=== PATIENT | female | born 1965 | race Caucasian/White ===

== ENCOUNTER → 2017-07-06 | Day surgery (SDC) | payer OTHER ==
[~2017-07-06] VITALS: Ht 167.6 cm; Wt 81.7 kg
[~2017-07-06] MED LIST: 0.9% Sodium Chloride 1,000 ML IV ONE; AMLO5TAB2 PO; FLUO20TA28 PO; FLUO40CA PO; IMI100 PO; LISI-567 PO; Sodium Chloride LOK Flush 10 mL Syringe IV PRN; ZONI100C6 PO; fentaNYL-PF 50 mCg/mL 2 mL Inj IVPUSH PRN
[2017-07-06 08:09] VITALS: BP 145/99; PULSE 66; O2SAT 97
[2017-07-06 09:09] VITALS: BP 137/87; PULSE 67; RESP 12; O2SAT 94
[2017-07-06 09:21] VITALS: BP 121/80; PULSE 69; RESP 12; O2SAT 98
[2017-07-06 09:29] VITALS: BP 123/83; PULSE 67; RESP 12; O2SAT 97
--- NOTE | 2017-07-06 18:33 | ENDO ---
[address] [address] ENDOSCOPY PROCEDURE PATIENT: JING QUINTERO : 1965 MR#: [id number] ADMIT: 07/06/2017 JOB ID: [id number] CORRECTED REPORT: DATE: 07/06/2017 PROCEDURE: Colonoscopy. INDICATIONS: Screening as patient has a history of colon polyps. Patient's ASA classification is II. Mallampati score is II. MEDICATIONS: Versed 6 mg, fentanyl 125 mcg. INSTRUMENT USED: [id number]. Prep quality was good. PROCEDURE DETAILS: After informed consent was obtained, the patient was brought into the GI suite, where she was placed on oxygen via nasal cannula and monitored with continuous pulse oximeter, telemetry, and blood pressure monitoring. A time-out was performed. Then, she was placed in a left lateral decubitus position and medications were administered for sedation. Digital rectal exam was performed and was unremarkable. The colonoscope was then inserted into the rectum and advanced under direct visualization to the cecum, which was identified by the presence of the ileocecal valve and appendiceal orifice. Once the cecum was reached, the colonoscope was withdrawn back into the rectum as the mucosa and lumen were examined. In the rectum, retroflexion was performed. Following retroflexion, remaining air in the rectum was suctioned, and procedure was completed. FINDINGS: In the descending colon, there was a flat, 7 mm polyp. Polyp appearance was consistent with a serrated polyp. The polyp was lifted using normal saline and then removed with a hot snare. The resulting mucosal defect demonstrated some mild oozing of blood. Therefore, three hemoclips were placed to approximate the margins. IMPRESSION: Descending colon polyp. RECOMMENDATIONS: 1. Avoid NSAIDs and anticoagulants for 72 hours. 2. Repeat colonoscopy in five years. COMPLICATIONS: None. ESTIMATED BLOOD LOSS: Less than 5 mL. Corrected by GS 07/11/17 at 12:04pm DOS
--- NOTE | 2017-07-10 17:00 | PATH ---
SURGICAL PATHOLOGY Attending Physician:Debbie Vyas CASE STATUS: Signed Out PATIENT NAME: JING QUINTERO PID: [id number] : 1965 DATE COLLECTED:07/06/2017 21:29 SPECIMEN: Colon, Polyp CLINICAL HISTORY: 1). DESCENDING COLON POLYP FINAL DIAGNOSIS: Descending Colon Polyp, Polypectomy: Sessile serrated adenoma. ICD10: D12.4 GROSS DESCRIPTION: The specimen is received in one formalin filled container labeled with the patient's name, sublabeled "descending colon polyp" and consists of a 0.7 x 0.6 x 0.3 CM portion of tissue. The specimen is trisected and entirely submitted in one cassette. 07/06/2017DC ICD-9 CODES: CPT CODES: 1: 62754 Electronically Signed Out Johann Garcia MD, Ph.D. [facility] Pathology [facility] [address], [place] [address] Technical component performed at [facility], [facility] [address], [place], [address]
== END | disposition home or self-care (01) ==
LOC: END 00:19
PROVIDERS: ATTEND Internal Medicine Gastroenterology
DX: Z12.11 Encounter for screening for malignant neoplasm of colon (principal); Z86.010 Personal history of colon polyps; D12.4 Benign neoplasm of descending colon; I10 Essential (primary) hypertension; F32.4 Major depressive disorder, single episode, in partial remission; M54.5 Low back pain; F12.90 Cannabis use, unspecified, uncomplicated; Z79.891 Long term (current) use of opiate analgesic
CPT/HCPCS: 45381; 45385; 99153; G0500; J2250; J3010; J7030